=== PATIENT | male | born 1995 | race Caucasian/White ===

== ENCOUNTER 2017-12-09 05:27 | Emergency (ER) | payer OTHER ==
--- NOTE | 2017-12-09 05:46 | ED ---
Abdominal Pain/Male - HPI Summary HPI Summary: Patient is a 22-year-old male who presents emergency department for epigastric abdominal pain times one day. 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 Episodes lasted several minutes and dissipated. Patient notes increased pain after eating of septic tonight. He does note he has history of gallstones but states pain feels different. Patient is currently having no pain in the emergency department. He denies recent illness, vomiting, diarrhea , urinary symptoms, fever, testicular pain or swelling. Patient states he has been taking ibuprofen of the last couple of days for his neck/shoulder. Patient states he has been having issues with increased reflux over the last several weeks. He has not taken any medication. Patient also notes increased stress and anxiety with home life and work life. He denies suicidal or homicidal ideations. Patient states he is interested in seeing a therapist now that he has insurance. Denies psychiatric history. Denies family history of cardiac disease. Denies caffeine use, alcohol use, smoking. Symptoms are moderate in severity. No current modifying factors. - History of Current Complaint Chief Complaint: EDAbdPain Stated Complaint: UPPER ABD/CHEST PAIN Time Seen by Provider: 12/09/17 05:41 Hx Obtained From: Patient Pain Intensity: 1 - Allergies/Home Medications Allergies/Adverse Reactions: Allergies Allergy/AdvReac Type Severity Reaction Status Date / Time clarithromycin [From Biaxin] AdvReac Intermediate Rash Verified 12/09/17 05:33 PMH/Surg Hx/FS Hx/Imm Hx Previously Healthy: Yes Infectious Disease History: No Infectious Disease History: Denies: Traveled Outside the [place] in Last 30 Days - Family History Known Family History: Negative: Cardiac Disease - Social History Occupation: Employed Full-time Lives: With Family Review of Systems Constitutional: Negative Negative: Fever, Chills Eyes: Negative ENT: Negative Cardiovascular: Negative Respiratory: Negative Positive: Abdominal Pain. Negative: Vomiting, Diarrhea, Nausea Genitourinary: Negative All Other Systems Reviewed And Are Negative: Yes Physical Exam Triage Information Reviewed: Yes Vital Signs On Initial Exam: Initial Vitals Temp Pulse Resp BP Pulse Ox 98.7 F 84 16 135/91 98 12/09/17 05:29 12/09/17 05:29 12/09/17 05:29 12/09/17 05:29 12/09/17 05:29 Vital Signs Reviewed: Yes Appearance: Positive: Well-Appearing - Pt. sitting on bed in NAD. Skin: Positive: Warm, Dry Head/Face: Positive: Normal Head/Face Inspection Eyes: Positive: Normal, EOMI Neck: Positive: Supple Respiratory/Lung Sounds: Positive: Clear to Auscultation, Breath Sounds Present Cardiovascular: Positive: Normal, RRR Abdomen Description: Positive: Other: - Abd. is soft and nontender throughout. Negative Camacho sign. No rebound tenderness or guarding. Neurological: Positive: Normal, CN Intact II-III Psychiatric: Positive: Affect/Mood Appropriate Diagnostics - Vital Signs Vital Signs Temp Pulse Resp BP Pulse Ox 12/09/17 05:29 98.7 F 84 16 135/91 98 - Laboratory Result Diagrams: 12/09/17 06:13 12/09/17 06:13 Lab Statement: Any lab studies that have been ordered have been reviewed, and results considered in the medical decision making process. Abdominal Pain Fem Course/Dx - Course Course Of Treatment: Patient presenting to the ER for intermittent epigastric pain that radiates into his chest. In the ER he has no pain and has a benign abdominal exam without reproducible tenderness. Will check basic labs and patient is also requesting information on local therapist. I spoke with her therapist and was able to provide patient with a list of low therapist. Is not suicidal and does not require psychiatric evaluation today. Blood work is unremarkable. Results were discussed with patient and his mom was not present. We'll start on Protonix. Can also take Tums, Pepto or Maalox if needed. Advised to try Tylenol for pain instead of ibuprofen. Patient will follow up in the [facility]. Advised to return to the ER if symptoms change or worsen. Patient understands and agrees with plan. - Diagnoses Differential Diagnosis/HQI/PQRI: Gall Bladder Disease, Hepatitis, Pancreatitis, Peptic Ulcer Disease Provider Diagnoses: GERD (gastroesophageal reflux disease), Stress Discharge - Sign-Out/Discharge Documenting (check all that apply): Patient Departure - Discharge Plan Condition: Good Disposition: HOME Prescriptions: Pantoprazole TAB (NF) [Protonix TAB (NF)] 20 mg PO DAILY #30 tab Patient Education Materials: Diet for Stomach Ulcers and Gastritis (ED), Gastroesophageal Reflux Disease (ED), Anxiety (ED) Referrals: [facility] [Outside] No Primary Care Phys,NOPCP [Primary Care Provider] - Additional Instructions: Schedule a follow up appointment with [facility] Take Protonix as directed Can also take tums or pepto bismol Return to ER if symptoms change or worsen - Billing Disposition and Condition Condition: GOOD Disposition: Home
[2017-12-09 06:30] LABS: ABS Basophils 0.1 10^3/ul (0-0.2); ABS Eosinophils 0.2 10^3/ul (0-0.6); ABS Lymphocytes 2.2 10^3/ul (1.0-4.8); ABS Monocytes 0.6 10^3/ul (0-0.8); ABS Neutrophils 5.3 10^3/ul (1.5-7.7); ABS Nucleated RBC 0 10^3/ul; Eosinophil % 2.7 % (0-6); Hematocrit 45 % (42-52); Hemoglobin 15.4 g/dl (14.0-18.0); Lymphocyte % 26.4 % (25-47); Mean Corpuscular HGB Conc 34 g/dl (31-36); Mean Corpuscular Hemoglobin 29 pg (27-31); Mean Corpuscular Volume 86 fL (80-94); Mean Platelet Volume 7.4 um3 (7.4-10.4); Nucleated Red Blood Cells % 0.1; Platelet Count 309 10^3/ul (150-450); Red Blood Count 5.25 10^6/ul (4.00-5.40); Red Cell Distribution Width 14 % (10.5-15); White Blood Count 8.4 10^3/ul (3.5-10.8)
[2017-12-09 07:54] VITALS: BP 121/74
== END 2017-12-09 07:53 | disposition home or self-care (01) ==
LOC: ED 05:27
DX: K21.9 Gastro-esophageal reflux disease without esophagitis (principal); F43.9 Reaction to severe stress, unspecified; Z88.3 Allergy status to other anti-infective agents
CPT/HCPCS: 36415; 80053; 83690; 85025; 99282

== ENCOUNTER 2018-03-13 22:12 | Emergency (ER) | payer OTHER ==
--- OUTSIDE RECORDS SUMMARY | 2018-03-13 22:25 | XMS REPORT | Continuity of Care Document ---
:1995 External Reference #:[id number] Author Name Joselin Khanna Care Team Providers Name Role Phone Ky Mills MD Care Team Information Counselor/Art Therapist Unavailable Payers Type Date Identification Numbers Payment Provider Subscriber Policy Number: [id number] [facility] [employer] [place] PayID: [id number] [id number] [place] [address] Advance Directives Description No Information Available Problems Date Description Provider Status Onset: 03/04/2018 Right upper quadrant pain Ky Mills MD Active Onset: 01/26/2018 Tinnitus of right ear Ky Mills MD Active Onset: 01/26/2018 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 Gastroesophageal reflux disease Ky Mills MD Active Onset: 12/24/2017 Altered mental status Ky Mills MD Active Onset: 12/24/2017 Epigastric pain Ky Mills MD Active Family History Description No Information Available Social History Type Date Description Comments Sex Unknown Tobacco Use Start: Unknown Patient has never smoked Smoking Status Reviewed: 03/04/18 Patient has never smoked Allergies, Adverse Reactions, Alerts Date Description Reaction Status Severity Comments 01/26/2018 Biaxin Active Medications Medication Date Status Form Strength Qnty SIG Indications Ordering Provider Melatonin Active Capsules 5mg 1 cap at Ky Mills, 018 bedtime as MD needed. Tylenol Extra 0 Active Tablets 500mg 2 by mouth Unknown Strength 000 3 times daily as needed Protonix [address] 20mg 30tabs 1 by mouth Ky Mills, 000 every day MD Salgado Ultra 0 Active Cream as needed Unknown Strength 000 for muscle pain Melatonin 0 Hx Capsules 10mg 1 tab by Unknown 000 - mouth at 10/11/2 bedtime as 018 needed for insomnia Immunizations Description No Information Available Vital Signs Date Vital Result Comment 03/04/2018 9:56am Weight 147.00 lb Heart Rate 78 /min BP Systolic 134 mmHg BP Diastolic 88 mmHg Respiratory Rate 16 /min Body Temperature 98.0 F Pain Level 2 acid reflex/heartburn O2 % BldC Oximetry 98 % 01/26/2018 9:01am Weight 247.00 lb Heart Rate 82 /min BP Systolic 128 mmHg BP Diastolic 88 mmHg Respiratory Rate 16 /min Body Temperature 98.6 F O2 % BldC Oximetry 98 % 12/24/2017 8:58am Height 69.5 inches 5'9.50" Weight 245.00 lb Heart Rate 78 /min BP Systolic 128 mmHg BP Diastolic 88 mmHg BP Systolic Sitting 124 mmHg BP Diastolic Sitting 84 mmHg Respiratory Rate 16 /min Body Temperature 98.5 F Pain Level 0 O2 % BldC Oximetry 98 % BMI (Body Mass Index) 35.7 kg/m2 Results Test Date Facility Test Result H/L Range Note Comp Metabolic Panel 03/04/2018 [facility] Sodium 139 mmol/L N 135-145 [address] [place], [place] [id number] [phone] Potassium 4.1 mmol/L N 3.5-5.0 Chloride 103 mmol/L N 101-111 Co2 Carbon Dioxide 30 mmol/L N 22-32 Anion Gap 6 mmol/L N 2-11 Glucose 92 mg/dL N 70-100 Blood Urea Nitrogen 13 mg/dL N 6-24 Creatinine 0.85 mg/dL N 0.67-1.17 BUN/Creatinine Ratio 15.3 N 8-20 Calcium 9.6 mg/dL N 8.6-10.3 Total Protein 7.4 g/dL N 6.4-8.9 Albumin 4.6 g/dL N 3.2-5.2 Globulin 2.8 g/dL N 2-4 Albumin/Globulin Ratio 1.6 N 1-3 Total Bilirubin 0.60 mg/dL N 0.2-1.0 Alkaline Phosphatase 73 U/L N 34-104 Alt 23 U/L N 7-52 Ast 24 U/L N 13-39 Egfr Non- 114.9 >60 Egfr 139.0 >60 1 Lipid Profile 03/04/2018 [facility] Triglycerides 55 mg/dL 2 (Trig/Chol/HDL) [address] [place] [address] [phone] Cholesterol 116 mg/dL 3 HDL Cholesterol 46.4 mg/dL 4 LDL Cholesterol 59 mg/dL 5 Laboratory test 03/04/2018 [facility] Lipase 24 U/L N 11.0- 82.0 6 finding [address] [address] [phone] Xray 03/04/2018 [facility] US Gallbladder <pending> [address] [place] [address] [phone] 1 Because ethnic data is not always readily available, this report includes an eGFR for both -Americans and non- Americans. The National Kidney Disease Education Program (NKDEP) does not endorse the use of the MDRD equation for patients that are not between the ages of 18 and 70, are , have extremes of body size, muscle mass, or nutritional status, or are non- or non-. According to the National Kidney Foundation, irrespective of diagnosis, the stage of the disease is based on the level of kidney function: Stage Description GFR(mL/min/1.73 m(2)) 1 Kidney damage with normal or decreased GFR 90 2 Kidney damage with mild decrease in GFR 60-89 3 Moderate decrease in GFR 30-59 4 Severe decrease in GFR 15-29 5 Kidney failure <15 (or dialysis) 2 Desirable: <150 Borderline High: 150-199 High: 200-499 Very High: >500 3 Desirable: <200 Borderline High: 200-239 High: >239 4 Low: <40 Desirable: 40-60 High: >60 5 Desirable: <100 Near Optimal: 100-129 Borderline High: 130-159 High: 160-189 Very High: >189 6 Copy Result to: Ky MILLS ([id number]) Procedures Description No Information Available Encounters Type Date Location Provider Dx Diagnosis Office Visit 01/26/2018 [facility] Ky Mills MD F48.1 Depersonalization- 8:40a [facility] derealization syndrome R41.0 Disorientation, unspecified K21.9 Gastro-esophageal reflux disease without esophagitis H93.11 Tinnitus, right ear Office Visit 12/24/2017 [facility] Ky Mills K21.9 Gastro- esophageal 8:30a [facility] [place] reflux disease without esophagitis R10.13 Epigastric pain R41.0 Disorientation, unspecified Plan of Treatment 03/04/2018 - Ky Mills MDK21.9 Gastro-esophageal reflux disease without esophagitisReferral:Albert Martinez MD, IwjdabmajfkbtcusF02.11 Right upper quadrant pain
--- NOTE | 2018-03-13 22:41 | ED ---
GI/ HPI - HPI Summary HPI Summary: 22-year-old male presents with abdominal pain past couple hours. He states he has no pain now. He states he had ultrasound yesterday that was showed no gallstones. He states he has gallbladder attack about once a month. He states that the symptoms only lasted for 20 minutes. pain was in his right upper quadrant radiated to her shoulder. Denies any chest pain or shortness breath. No nausea or vomiting. No fevers. No diarrhea or constipation. No urinary symptoms. has history of gallstones. has follow up with GI on Thursday. - History of Current Complaint Chief Complaint: EDAbdPain Time Seen by Provider: 03/13/18 22:28 Stated Complaint: ABD PAIN Pain Intensity: 2 - Allergy/Home Medications Allergies/Adverse Reactions: Allergies Allergy/AdvReac Type Severity Reaction Status Date / Time clarithromycin [From Biaxin] AdvReac Intermediate Rash Verified 03/13/18 22:18 PMH/Surg Hx/FS Hx/Imm Hx Endocrine/Hematology History: Denies: Hx Anticoagulant Therapy Respiratory History: Denies: Hx Asthma Infectious Disease History: Yes Infectious Disease History: Denies: Traveled Outside the [place] in Last 30 Days - Family History Known Family History: Negative: Cardiac Disease - Social History Alcohol Use: None Substance Use Type: Reports: None Smoking Status (MU): Never Smoked Tobacco Review of Systems Negative: Fever Negative: Chest Pain Negative: Shortness Of Breath Positive: Abdominal Pain. Negative: Vomiting, Diarrhea, Nausea All Other Systems Reviewed And Are Negative: Yes Physical Exam Triage Information Reviewed: Yes Vital Signs On Initial Exam: Initial Vitals Temp Pulse Resp BP Pulse Ox 97.4 F 69 16 125/75 99 03/13/18 22:16 03/13/18 22:16 03/13/18 22:16 03/13/18 22:16 03/13/18 22:16 Vital Signs Reviewed: Yes Appearance: Positive: Well-Appearing Skin: Positive: Warm, Dry Head/Face: Positive: Normal Head/Face Inspection Eyes: Positive: Normal, Conjunctiva Clear ENT: Positive: Pharynx normal Respiratory/Lung Sounds: Positive: Clear to Auscultation, Breath Sounds Present Cardiovascular: Positive: Normal, RRR Abdomen Description: Positive: Nontender, Soft. Negative: CVA Tenderness (R), CVA Tenderness (L) Bowel Sounds: Positive: Present Musculoskeletal: Positive: Normal Neurological: Positive: Normal Psychiatric: Positive: Normal Diagnostics - Vital Signs Vital Signs Temp Pulse Resp BP Pulse Ox 03/13/18 22:16 97.4 F 69 16 125/75 99 - Laboratory Result Diagrams: 03/13/18 22:38 03/13/18 22:38 Lab Statement: Any lab studies that have been ordered have been reviewed, and results considered in the medical decision making process. Re-Evaluation - Re-Evaluation First Eval Re-Evaluation Time: 23:12 Change: Unchanged Comment: no pain still GIGU Course/Dx - Course Course Of Treatment: 22-year-old male presents with abdominal pain past couple hours. He states he has no pain now. He states he had ultrasound yesterday that was showed no gallstones. He states he has gallbladder attack about once a month. He states that the symptoms only lasted for 20 minutes. pain was in his right upper quadrant radiated to her shoulder. Denies any chest pain or shortness breath. No nausea or vomiting. No fevers. No diarrhea or constipation. No urinary symptoms. has history of gallstones. has follow up with GI on Thursday. On exam has a nontender abdomen. labs within normal limits. Gallbladder yesterday shows no gallstones. On re-eval after an hour patient still has no pain. Discussed should keep follow-up with GI. told Tylenol ibuprofen for pain. told if develop any fever or vomiting with pain to return. Patient understands agrees plan. - Diagnoses Differential Diagnoses - Male: Gall Bladder Disease, Gastritis, Urinary Tract Infection Provider Diagnoses: Abdominal pain Discharge - Sign-Out/Discharge Documenting (check all that apply): Patient Departure - Discharge Plan Condition: Good Disposition: HOME Patient Education Materials: Biliary Colic (ED) Referrals: Ky Mills MD [Primary Care Provider] - Albert Martinez MD [Medical Doctor] - Additional Instructions: Take tyenlol or ibuprofen every 6 hours as needed for pain keep follow up with gi Return to ED if develop any fever, vomiting, or any new or worsening symptoms - Billing Disposition and Condition Condition: GOOD Disposition: Home
[2018-03-13 22:45] LABS: ABS Basophils 0.1 10^3/ul (0-0.2); ABS Eosinophils 0.4 10^3/ul (0-0.6); ABS Lymphocytes 3.8 10^3/ul (1.0-4.8); ABS Monocytes 0.9 10^3/ul (0-0.8); ABS Neutrophils 3.1 10^3/ul (1.5-7.7); ABS Nucleated RBC 0 10^3/ul; Eosinophil % 4.6 %; Hematocrit 45 % (42-52); Hemoglobin 15.4 g/dl (14.0-18.0); Lymphocyte % 46.4 %; Mean Corpuscular HGB Conc 34 g/dl (31-36); Mean Corpuscular Hemoglobin 29 pg (27-31); Mean Corpuscular Volume 84 fL (80-94); Mean Platelet Volume 7.1 fL (7.4-10.4); Nucleated Red Blood Cells % 0.3; Platelet Count 276 10^3/ul (150-450); Red Blood Count 5.37 10^6/ul (4.00-5.40); Red Cell Distribution Width 13 % (10.5-15); White Blood Count 8.2 10^3/ul (3.5-10.8)
[2018-03-13 23:01] LABS: Albumin 4.3 g/dL (3.2-5.2); Albumin/Globulin Ratio 1.4 (1-3); BUN/Creatinine Ratio 13.6 (8-20); C Reactive Protein 7.59 mg/L (<8.01); Calcium 9.2 mg/dL (8.6-10.3); EGFR Non-African American 121.5 (>60); Potassium 3.7 mmol/L (3.5-5.0); Total Bilirubin 0.8 mg/dL (0.2-1.0); Total Protein 7.3 g/dL (6.4-8.9)
[2018-03-13 23:20] VITALS: BP 111/70
== END 2018-03-13 23:21 | disposition home or self-care (01) ==
LOC: ED 22:12
DX: R10.11 Right upper quadrant pain (principal)
CPT/HCPCS: 36415; 80053; 83690; 85025; 86140; 99283